=== PATIENT | male | born 1950 | race Caucasian/White ===

== ENCOUNTER 2022-02-08 07:34 | Inpatient (IN) ==
--- NOTE | 2022-01-12 15:41 | PAT Medication Instructions ---
Medication Instructions Date of Service January 12, 2022 Home Medications aspirin 81 mg tablet,delayed release 81 mg PO 3XWK doxazosin 1 mg tablet 1 mg PO HS ibuprofen 200 mg tablet (Advil) 200 mg PO BID PRN verapamil 240 mg tablet,extended release 240 mg PO HS ASK your surgeon for instructions ibuprofen 200 mg tablet (Advil) 200 mg PO BID PRN ASK your prescriber and surgeon aspirin 81 mg tablet,delayed release 81 mg PO 3XWK Take evening before surgery doxazosin 1 mg tablet 1 mg PO HS verapamil 240 mg tablet,extended release 240 mg PO HS Other Notes If you have any questions please call us at [phone] or [phone] or [phone] or [phone]
--- NOTE | 2022-01-16 11:34 | Anesthesiology Consultation ---
Date of Service January 16, 2022 Assessment & Plan (1) Encounter for pre-operative examination: COVID screening: Per assessment on 01/16: No known COVID-19 positive contacts or current COVID-19 related symptoms. Travel screen negative. Patient vaccinated. Surgeon arranging preop COVID testing. Awaiting results. Chart Review Chart Review: Acceptable Risk for Surgery and Patient seen in Pre Admission Testing History Surgery Operation Date: 02/08/22 10:40 Proposed Procedures p Right Knee Poly Exchange with Possible Revision of Total Knee Arthroplasty - Ajay Castillo DO Height/Weight Height: 5 ft 6 in Weight: 91.8 kg Allergies Allergy/AdvReac Type Severity Reaction Status Date / Time No Known Allergies Allergy Unknown Verified 01/12/22 14:41 Medications Home Medications Medication Instructions Recorded Confirmed Last Taken aspirin 81 mg tablet,delayed 81 mg PO 3XWK 01/12/22 01/12/22 Unknown release doxazosin 1 mg tablet 1 mg PO HS 01/12/22 01/12/22 Unknown ibuprofen 200 mg tablet (Advil) 200 mg PO BID PRN 01/12/22 01/12/22 Unknown verapamil 240 mg tablet,extended 240 mg PO HS 01/12/22 01/12/22 Unknown release Past Medical History Medical History Aortic stenosis Mild aortic stenosis (AZK 1.4-1.5cm2, MG 11-12.6mmhg) per 02/2021 echo Arthritis Enlarged prostate Hypertension Exercise / Class Metabolic Activity II 4-5 Yardwork/Stairs/Walk up hill (one FS (no CP, no SOB)) Past Family History Family History Other No known health problems Past Surgical History Surgical History History of adenoidectomy History of appendectomy History of arthroscopy LEFT KNEE History of carpal tunnel release R/L History of cataract surgery R/L History of colonoscopy History of elbow surgery LEFT X 2 History of repair of rotator cuff RIGHT X 3 History of repair of rotator cuff LEFT History of tonsillectomy History of total knee replacement RIGHT Hx of hand surgery RIGHT JT REPLACEMENT Past Anesthesia History No Hx of Anesthesia Complications and No Family Hx of Anesthesia Complications History of PONV No Hx of PONV and No Hx of Motion Sickness Social History Smoking Status: Former smoker Do You Dip or Chew Tobacco: No (QUIT 10-15 YRS AGO) Smoking End Date: Quit 1970s Hx Alcohol Use: Yes Alcohol type: beer alcohol intake frequency: 0-2 drinks per day (1-2 beers/day) Hx Substance Use: No Review of Systems Patient denies chest pain, shortness of breath, dyspnea on exertion, fever, chills, cough, wheezing, palpitations. Physical Exam Vital Signs VITALS BP 145/82 P 63 TEMP 97.6 SP02 96%RA RESP 16 PHYSICAL Full cervical extension range of motion. Full TMJ range of motion. TMD 3 finger breaths Mallampati Score 3 (small oral opening) Dentition: lower partial, upper front crowns Lungs: clear throughout to auscultation Cardiac: regular rate and rhythm, I/ systolic murmur Spine: normal Carotid arteries: negative bruit Extremities: no edema Lab Results Anesthesia Preop Results Results Anesthesia Widget: WBC 5.72 K/uL (4.8-10.8) 01/16/22 Hgb 14.0 g/dL (14.0-18.0) 01/16/22 Hct 40.9 % (42-52) L 01/16/22 Plt 198 K/uL (130-400) 01/16/22 Na 140 mmol/L (136-145) 01/16/22 K 4.0 mmol/L (3.5-5.1) 01/16/22 Cl 105 mmol/L (98-107) 01/16/22 CO2 28 mmol/L (21-32) 01/16/22 BUN 13 mg/dl (6-23) 01/16/22 Creat 0.69 mg/dl (0.6-1.4) 01/16/22 Glucose Level 82 mg/dl (70-99(Fasting)) 01/16/22 PT 10.7 Seconds (9.0-12.0) 01/16/22 PTT 30.2 Seconds (21.0-31.0) 01/16/22 INR 1.0 (0.9-1.1) 01/16/22 HA1c 5.7 % (4.5-5.6) H 01/16/22 Urine Color Yellow 01/16/22 Urine Appearance Clear (Clear) 01/16/22 Urine pH 6.5 (4.5-7.5) 01/16/22 Urine Specific [place] 1.009 (1.000-1.030) 01/16/22 Urine Protein Negative (Negative) 01/16/22 Urine Glucose (UA) Negative (Negative) 01/16/22 Urine Ketones Negative (Negative) 01/16/22 Urine Blood Negative (Negative) 01/16/22 Urine Nitrite Negative (Negative) 01/16/22 Urine Bilirubin Negative (Negative) 01/16/22 Urine Urobilinogen Negative (Negative) 01/16/22 Urine Leukocyte Esterase Negative (Negative) 01/16/22 Blood Type A Negative 01/16/22 Antibody Screen NEGATIVE 01/16/22 Testing Electrocardiogram Date: 01/16/22 Sinus bradycardia with first-degree AV block at 57 bpm. Nonspecific T wave abnormality. Unconfirmed report. Chest X-Ray Date: 01/16/22 FINDINGS: The cardiac silhouette is mildly enlarged. No pneumothorax, large pleural effusion or overt pulmonary edema. Nonspecific interstitial coarsening of the lung bases with mild blunting of the costophrenic angles. Degenerative changes of the shoulders and spine. Atherosclerosis of the aorta. IMPRESSION: Cardiomegaly with mild nonspecific interstitial coarsening of the lung bases suggestive of atelectasis versus scarring. Echocardiogram Date: 02/10/21 LVEF 50-54%. Borderline increased concentric LV wall thickness. Moderate LAE. Grade 1 diastolic dysfunction. Mild AV calcification. Mild aortic stenosis (ZAK 1.4-1.5cm2, MG 11-12.6mmhg). Mild AR. Mild MR. Proximal ascending thoracic aorta is mildly enlarged.
--- NOTE | 2022-01-23 08:04 | History & Physical Report ---
Date of Service January 23, 2022 date of surgery: 02/08/22 Procedure: Right Knee Poly Exchange with Possible Revision of Total Knee Arthroplasty Surgeon: Ajay Castillo Assessment & Plan (1) Painful total knee replacement, right: Plan: He is s/p Right [place]KA [place] [address] Castillo, has continued pain and giving out, he has had a negative workup for infection, will proceed with right knee Poly Exchange with Possible Revision of Total Knee Arthroplasty pending intra-opera tive findings. will start on ASA 81mg po bid x 1 month, plan on HHPT at time of discharge. The risks and benefits have been discussed including, but not limited to, risk of infection, nerve injury, stiffness, loss of motion, failure to improve, etc. Reasonable outcomes and options of treatment were discussed. An explanation of appropriate alternatives to the procedure that may be advantageous were discussed and their risks and benefits, as well as the risks and benefits of not proceeding with treatment. I offered to answer any additional inquiries concerning the treatment involved. All the patient's questions were answered. The patient is agreeable, understanding of the treatment plan and alternatives, and wishes to proceed with the treatment plan. History of Present Illness Chief Complaint: Right knee pain Primary Care Provider: Brenden Anders MD Christopher is a 71 year old male who complains of right knee pain, has history of Right TKA by Dr Castillo 09/30/03. He was doing well until recently, he now has complaints of giving out and instability. He had prior bone scan in April 2021 which was negative for loosening or infection, he also had a ESR level of 3 at that time. he denies any injuries or trauma to the knee, he has used OTC NSAIDs and Tyelnol for pain. Allergies Allergy/AdvReac Type Severity Reaction Status Date / Time No Known Allergies Allergy Unknown Verified 01/12/22 14:41 Home Medications Medication Instructions Recorded Confirmed Type aspirin 81 mg tablet,delayed 81 mg PO 3XWK 01/12/22 01/12/22 History release doxazosin 1 mg tablet 1 mg PO HS 01/12/22 01/12/22 History ibuprofen 200 mg tablet (Advil) 200 mg PO BID PRN 01/12/22 01/12/22 History verapamil 240 mg tablet,extended 240 mg PO HS 01/12/22 01/12/22 History release Past Med/Surg History Medical History Aortic stenosis Mild aortic stenosis (ZAK 1.4-1.5cm2, MG 11-12.6mmhg) per 02/2021 echo Arthritis Enlarged prostate Hypertension Surgical History (Updated 01/23/22 @ 08:13 by Jeanmarie Smith PA-C) History of adenoidectomy History of appendectomy History of arthroscopy LEFT KNEE History of carpal tunnel release R/L History of cataract surgery R/L History of colonoscopy History of elbow surgery LEFT X 2 History of repair of rotator cuff RIGHT X 3 History of repair of rotator cuff LEFT History of tonsillectomy History of total knee replacement RIGHT TKA: 09/30/03: using [employer] Scorpio knee, 9 Femur, 9 Tibia, 12 poly, 10 patella Hx of hand surgery RIGHT JT REPLACEMENT Family History Other No known health problems Social History Smoking Status: Former smoker Second Hand Exposure: No; Hx Alcohol Use: Yes Alcohol type: beer Hx Substance Use: No Preferred Language: Chinese Communication Ability: Effective 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: No Beliefs That Will Affect Care: None Current Living Situation: Spouse current occupational status: employed 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 Feels Safe at Home: Yes Assistive Devices: Denture - Lower, Glasses and Hearing Aid - Bilateral Review of Systems Review of Systems: All systems reviewed & are unremarkable except as noted in HPI & below Constitutional: no fever, no chills and no sweats Respiratory: no cough and no dyspnea Cardiovascular: no chest pain, no dyspnea and no orthopnea Gastrointestinal: no abdominal pain, no nausea and no vomiting Musculoskeletal: as per Subjective / HPI Physical Exam Physical Exam: HT: 5ft 6in WT: 91.8kg BP: 126/78 Constitutional: WD/WN, vitals as above no acute distress Respiratory: normal respiratory effort, lungs clear to auscultation no respiratory distress, no labored breathing and does not use accessory muscles Cardiovascular: RRR, no murmur, no edema Gastrointestinal (Abdomen): normal bowel sounds, soft, nontender, no hepatosplenomegaly Musculoskeletal: Knee: + knee abnormal to inspection (RIGHT KNEE), + effusion (+1 effusion), + surgical incision (well healed portals), + limited ROM of knee (ROM 0/0/115) and + joint line tenderness (medial joint line); no deformity, no skin erythema, no ecchymosis, no crepitation with knee ROM, no valgus laxity, no varus laxity and anterior drawer test negative Results & Data Results & Data ([facility]) Diagnostic Findings Radiographs reveal a cemented total knee replacement arthroplasty in acceptable position and alignment. No evidence of loosening or loss of fixation is noted. The patella is tracking well. ASSESSMENT: status post cemented posterior stabilized total knee replacement arthroplasty. BONE SCAN APR 2021 NO SIGNS OF LOOSENING OR INFECTIOUS PROCESS.
[~2022-02-08 07:34] MED LIST: ACETAMINOPHEN 500 MG TAB PO SCH; BUPIVACAINE 0.5 % 5 MG/1 ML PF 10ML VIAL ONE; CeleBREX 200 MG CAP PO SCH; EPINEPHrine INJ 1 MG/ML AMP ONE; FAMOTIDINE 20 MG TAB PO SCH; GABAPENTIN 300 MG CAP PO SCH; LR 500ML BOLUS, THEN 15ML/HR IV SCH; METOCLOPRAMIDE HCL 10 MG TABLET PO SCH; ROPIVACAINE 0.5% 5 MG/ML 30 ML VIAL ONE; ROPIVACAINE 0.5% HCL/PF 150 MG, BUPIVACAINE 0.75% MPF 20 ML, EPINEPHrine 30MG/30ML (OR ... INFIL SCH; ceFAZolin 2000MG 2,000 MG/15 ML SYR IV SCH; dexAMETHasone 4 MG TAB PO SCH; oxyCODONE HCL 10 MG TABCR (OxyCONTIN) PO SCH
--- NOTE | 2022-02-08 09:08 | History & Physical Bridge Note ---
Date of Service February 08, 2022 History & Physical Bridge Note I have examined the patient, reviewed the History & Physical and in the interval since the performance of the History & Physical I have noted the following changes of clinical significance: no changes noted
[2022-02-08] MEDS ORDERED: MIDAZOLAM HCL 1 MG/ML 2ML VIAL ONE (10:21)
[2022-02-08] MEDS ORDERED: ORTHO JOINT ANESTHETIC ONE (11:42)
[2022-02-08] MEDS ORDERED: fentaNYL citrate 100 MCG/2 ML VIAL ONE (11:45)
[2022-02-08] MEDS ORDERED: PROMETHAZINE HCL 12.5 MG in SODIUM CHLORIDE 0.9% 50 ML IV PRN (12:12)
[2022-02-08] MEDS ORDERED: ePHEDrine sulfate 50 MG/ML AMP IV PRN (12:12)
[2022-02-08] MEDS ORDERED: ATROPINE SULFATE 0.1 MG/ML 10ML SYR IV PRN (12:12)
[2022-02-08] MEDS ORDERED: HYDROmorphone INJ 1 MG/ML SYRINGE IV PRN (12:12)
[2022-02-08] MEDS ORDERED: fentaNYL citrate 100 MCG/2 ML VIAL IV PRN (12:12)
[2022-02-08] MEDS ORDERED: ONDANSETRON INJ 2 MG/ML 2 ML VIAL IV PRN ×2 (12:12→15:38)
[2022-02-08] MEDS ORDERED: FLUMAZENIL 0.1 MG/1 ML 10 ML VIAL IV PRN (12:12)
[2022-02-08] MEDS ORDERED: NALOXONE HCL 0.4 MG/1 ML VIAL/CARP IV PRN ×2 (12:12→15:38)
[2022-02-08] MEDS ORDERED: PROPOFOL IV EMULSION 10 MG/ML 20 ML VIAL IV ONE (12:29)
--- NOTE | 2022-02-08 13:02 | Operative Report ---
Post Operative Report Pre & Post Diagnosis Operation Date: 02/08/22 10:50 Pre-Op Diagnosis: Right total knee arthroplasty with worn polyinsert Post-Op Diagnosis: Right total knee arthroplasty with worn polyinsert I identified the patient and participated in the time-out.: Yes Procedure Operation Date: 02/08/22 10:50 Actual Procedur right total knee arthroplasty polychange to size 18 mm Scorpio insert (Right) - Ajay Castillo DO Surgeon Ajay Castillo DO Engraver Apprentice Decorative Neftaly KRAUS Estimated Blood Loss 5 Findings Consistent with Post-Op Diagnosis Patient presents with laxity in both flexion extension mid flexion with wear to his polyinsert no sign of or evidence of loosening of tibial component femoral component or patellar component was noted the patient had laxity in both flexion extension mid flexion the original polywas a size 12 was upsized to a size 18 gave excellent stability in all ranges of motion Specimens Polyinsert Drains None Anesthesia Type MAC Spinal Regional Complications none Disposition Accompanied Patient To Recovery: No Disposition: Recovery Room Indications Patient presents with ligamentous laxity after having had undergone a previous right total knee arthroplasty in 2003 no evidence of loosening of component was noted the patient underwent a polychange and upsized from a size 12 to a size 18 Description of Procedure After initiation of regional and general anesthesia the right lower extremity socially prepped draped usual fashion surgery type utilizing #15 blade incision made in the region of the previous incision and extensor mechanism a medial parapatellar incision made and the medial lateral gutters were removed from stenosis no thickened synovium there was no evidence of femoral or tibial loosening patellar components in excellent condition no loosening was noted there was ligamentous laxity both flexion mid flexion and extension with polywear noted after performing thorough irrigation debridement lavage removal of all polymaterial the polywas removed and was trialed with a wound was irrigated with copious amounts of sterile saline solution operative matter debris was removed subsequently the medial parapatellar incision was closed #1 Vicryl subcu was closed 2-0 Vicryl skin was closed with 3-0 Vicryl 2-0 Vicryl and skin clips sterile compressive dressing was placedDue to the complex nature of the procedure, the entire surgery was performed with the operational assistance of Sola KRAUS The boilermaker's assistant, under direct supervision, was involved in the actual performance of all aspects of the surgical procedure including hemostasis, tissue retraction and incision, instrument management, patient positioning, and wound closure. up to a size 18 gave excellent stability in both flexion extension mid flexion wound was irrigated with copious amounts of sterile saline solution subsequently the final new polycomponent was placed a size 18 mm thickness the I attest to the content of the Intraoperative Record and any orders documented therein. Any exceptions are noted below.
--- NOTE | 2022-02-08 14:20 | XRay Report ---
RIGHT KNEE 2 VIEWS History: Right total knee arthroplasty. Degenerative arthritis. Postop. FINDINGS: The patient is status post a right total knee arthroplasty. The hardware is intact. No frac ture or dislocation. Skin amy are in place. IMPRESSION: Right total knee arthroplasty. No evidence for hardware complication. ACT 112: Negative or not required by law. Electronically signed by: Jamie Willett M.D. 02/08/2022 2:18 PM
--- NOTE | 2022-02-08 14:35 | Anesthesiology Progress Note ---
Date of Service February 08, 2022 Anesthesia Post Procedure Vital Signs Vital Signs: Temp Pulse Resp BP Pulse Ox 02/08/22 14:20 36.1 C L 64 18 120/78 95 02/08/22 14:10 61 18 134/79 97 02/08/22 14:00 62 14 128/68 93 02/08/22 13:50 63 15 132/79 99 02/08/22 13:40 67 15 125/79 97 02/08/22 13:31 36.4 C L 77 18 130/77 94 02/08/22 08:08 36.9 C 79 18 138/81 96 Transfer of Care Handoff Completed per policy Notes Mental Status: alert / awake / arousable Patient Amnestic to Procedure: Yes Nausea / Vomiting: adequately controlled Pain: adequately controlled Airway Patency, RR, SpO2: stable & adequate BP & HR: stable & adequate Hydration State: stable & adequate Anesthetic Complications: no major complications apparent
[2022-02-08] MEDS ORDERED: MAGNESIUM HYDROXIDE SUSP 30 ML UDC PO PRN (15:38)
[2022-02-08] MEDS ORDERED: bisacodyL 10 MG SUPP PR PRN (15:38)
[2022-02-08] MEDS ORDERED: oxyCODONE HCL IR 5 MG TAB (IMMEDIATE RELEASE) PO PRN (15:38)
[2022-02-08] MEDS ORDERED: diphenhydrAMINE 50 MG/ML VIAL IV PRN (15:38)
[2022-02-08] MEDS ORDERED: HYDROmorphone INJ 0.5 MG/0.5 ML SYR IV PRN (15:38)
[2022-02-08] MEDS: SODIUM CHLORIDE 0.9% 1000ML 1,000 ML IV SCH (16:00)
--- NOTE | 2022-02-08 16:01 | Hospitalist Consultation ---
Date of Consultation February 08, 2022 Assessment & Plan (1) Painful total knee replacement, right: - S/p total R knee poly exchange by Dr. Castillo on 02/08/22 - Pain management, bowel regimen and DVT ppx with ASA 81 mg BID per the primary team - PT/OT consults, pt is planning on outpatient therapy - Follow am CBC to monitor for acute blood loss (2) Hypertension: (3) Aortic stenosis: - Hx of such, monitor - May continue aspirin 81 mg 3x per week, verapamil 240 mg po HS (4) Enlarged prostate: - Noted, monitor for urinary retention s/p surgical procedure (5) Arthritis: - May continue ibuprofen per the primary team after discharge, hold while taking asa 81 mg BID - Continue pain medication as per primary team -Occurs primarily in the left ankle, patient denies any previous trauma or injury to this location DVT PPx: - teds, scds, ASA 81 mg twice daily CODE: Full code Dispo: From home, likely to remain in the hospital x 1-2 days Thank you for involving us in the care of Mr. Lutz. If you have any questions or concerns please do not hesitate to call. At this time medicine will follow along. Supervising Physician Co-Signing Physician Notes Patient seen and examined independently at bedside. Chart reviewed. Case discussed with Bella WELSH and agree with the documentation above. In summary, this is a 71 year old male with right knee TKA with worn polyinsert who underwent Actual Procedur right total knee arthroplasty polychange to size 18 mm Scorpio insert(Right) by Dr Castillo today. Doing well postop. Resting comfortably in bed, pain controlled. Tolerated diet without issues. Right knee covered with dressing. Chest clear, heart sounds normal, AAOx3. Diet, ac tivities, pain management and DVT prophylaxis per ortho. Rest as per note above. History of Present Illness Reason for Consultation: Medical management Requesting Physician: Dr. Castillo Attending Physician: Ajay Castillo DO History of Present Illness This is a 71-year-old male with PMHx of aortic stenosis, arthritis, enlarged prostate, hypertension who presents to the hospital for elective right total knee arthroplasty with worn polyinsert, arthroplasty polyexchange on 02/08/[address] Castillo. He is doing very well status post surgical procedure. His , Annabella, is sitting with him at bedside. Patient denies any acute complaints and is tolerating his Jell-O without difficulty. He denies any severe pain, numbness or tingling into bilateral lower extremities. He notes that he occasionally has left ankle will bother him and states that he is planning on having an orthopedic doctor look at this after his knee heals up. Left ankle occasionally gets swollen but otherwise he denies any acute edema in his lower extremities. He notes having a soft murmur that was found about 2 years ago by his PCP. Allergies Allergy/AdvReac Type Severity Reaction Status Date / Time No Known Allergies Allergy Unknown Verified 02/08/22 08:06 Home Medications Medication Instructions Recorded Confirmed Type aspirin 81 mg tablet,delayed 81 mg PO 3XWK 01/12/22 02/08/22 History release doxazosin 1 mg tablet 1 mg PO HS 01/12/22 02/08/22 History ibuprofen 200 mg tablet (Advil) 200 mg PO BID PRN 01/12/22 02/08/22 History verapamil 240 mg tablet,extended 240 mg PO HS 01/12/22 02/08/22 History release Patient History Medical History (Updated 02/08/22 @ 16:02 by Bella Leon PA-C) Aortic stenosis Mild aortic stenosis (ZAK 1.4-1.5cm2, MG 11-12.6mmhg) per 02/2021 echo Arthritis Enlarged prostate Hypertension Surgical History History of adenoidectomy History of appendectomy History of arthroscopy LEFT KNEE History of carpal tunnel release R/L History of cataract surgery R/L History of colonoscopy History of elbow surgery LEFT X 2 History of repair of rotator cuff RIGHT X 3 History of repair of rotator cuff LEFT History of tonsillectomy History of total knee replacement RIGHT TKA: 09/30/03: using [employer] Scorpio knee, 9 Femur, 9 Tibia, 12 poly, 10 patella Hx of hand surgery RIGHT JT REPLACEMENT Family History Other No known health problems Social History Smoking Status: Former smoker Smoking End Date: Quit ; Second Hand Exposure: No; Do You Dip or Chew Tobacco: No (QUIT 10-15 YRS AGO); Hx Alcohol Use: Yes Alcohol type: beer Hx Substance Use: No Preferred Language: Upper Sorbian Communication Ability: Effective Driver Education Instructor Required: No Beliefs That Will Affect Care: None Current Living Situation: Spouse current occupational status: employed 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 Other Information That Helps Us Care for You: No Feels Safe at Home: Yes Safety Concerns: Feels Safe At This Time Assistive Devices: Hearing Aid - Bilateral Review of Systems Review of Systems: Constitutional: No fever, sweats or chills Eyes: No diplopia, no worsening or blurred vision ENT: normal hearing, no trouble swallowing Respiratory: No cough, sputum, dyspnea at rest or on exertion Cardiovascular: No chest pain, tightness or palpitations Abdomen: No pain, nausea, vomiting, diarrhea or constipation Musculoskeletal: No joint pain, calf pain, swelling, as per HPI Neurologic: No weakness, numbness/tingling, or balance problems Psychiatric: No anxiety or depression Skin: No rash or itch Physical Exam Physical Exam: General: awake, alert, no apparent distress Head: Normocephalic, atraumatic ENT: PERRL, EOMI, no pharyngeal exudate, mucous membranes moist Chest: Clear to auscultation, on room air, no adventitious breath sounds Cardiac: Regular rate and rhythm, no murmur, no JVD, normal peripheral pulses, good capillary refill Abdominal: NABS x 4 quadrants, soft, nondistended, nontender to palpation, no rebound or guarding Extremities: Right knee with bandage C/D/I, shen wrap intact, ice pack in place, otherwise normal inspection, no peripheral edema or erythema, calfs nontender to palpation Psych: Normal mood and affect Neuro: AAO x 3, strength intact bilaterally and rated 5/5, no motor deficits, speech is clear, no peripheral sensory deficits Results & Data Results & Data ([facility]) Vital Signs (Past 12 Hours) Vital Signs Temp Pulse Resp BP Pulse Ox 02/08/22 15:36 36.4 C L 61 16 160/83 H 98 02/08/22 15:14 36.4 C L 64 18 135/84 2 L 02/08/22 14:35 58 L 13 132/85 96 02/08/22 14:20 36.1 C L 64 18 120/78 95 02/08/22 14:10 61 18 134/79 97 02/08/22 14:00 62 14 128/68 93 02/08/22 13:50 63 15 132/79 99 02/08/22 13:40 67 15 125/79 97 02/08/22 13:31 36.4 C L 77 18 130/77 94 02/08/22 08:08 36.9 C 79 18 138/81 96 Laboratory Results 02/08/22 02/08/22 08:41 07:48 SARS-CoV-2, RNA, NAAT NEGATIVE Blood Type A Negative Antibody Screen NEGATIVE Diagnostic Findings Knee X-Ray 02/08/22 14:01 RIGHT KNEE 2 VIEWS History: Right total knee arthroplasty. Degenerative arthritis. Postop. FINDINGS: The patient is status post a right total knee arthroplasty. The hardware is intact. No fracture or dislocation. Skin amy are in place. IMPRESSION: Right total knee arthroplasty. No evidence for hardware complication. ACT 112: Negative or not required by law. Electronically signed by: Jamie Willett M.D. 02/08/2022 2:18 PM
[2022-02-08] MEDS: ACETAMINOPHEN 500 MG TAB PO SCH ×2 (16:09→22:31)
[2022-02-08] MEDS: ceFAZolin 2000MG 2,000 MG/15 ML SYR IV SCH (20:22)
[2022-02-08] MEDS: DOCUSATE SODIUM 100 MG CAP PO SCH (20:23)
[2022-02-08] MEDS: ASPIRIN 81 MG ECTAB PO SCH (20:23)
[2022-02-08] MEDS: KETOROLAC TROMETHAMINE 15 MG/ML VIAL IV SCH (20:23)
[2022-02-08] MEDS ORDERED: ASPIRIN 81 MG ECTAB PO SCH (21:00)
[2022-02-08] MEDS ORDERED: SENNA 8.6 MG TAB PO SCH (21:00)
[2022-02-08] MEDS ORDERED: VERAPAMIL HCL 240 MG TABCR PO SCH (21:00)
[2022-02-08] MEDS ORDERED: DOXAZOSIN MESYLATE 1 MG TAB PO SCH (21:00)
[2022-02-09] MEDS: SODIUM CHLORIDE 0.9% 1000ML 1,000 ML IV SCH (02:14)
[2022-02-09] MEDS: ceFAZolin 2000MG 2,000 MG/15 ML SYR IV SCH (03:17)
[2022-02-09] MEDS: KETOROLAC TROMETHAMINE 15 MG/ML VIAL IV SCH ×2 (03:17→09:00)
[2022-02-09] MEDS: ACETAMINOPHEN 500 MG TAB PO SCH ×2 (05:14→13:41)
[2022-02-09 07:32] LABS: Hematocrit (blood only) 34.3 % (42-52); Hemoglobin 11.6 g/dL (14.0-18.0); Mean Corpuscular Hemoglobin 30.4 pg (25-34); Mean Corpuscular Hgb Conc 33.8 g/dL (32-36); Mean Platelet Volume 11.6 fL (7.4-10.4); Platelet Count 184 K/uL (130-400); RDW Coefficient of Variation 14.9 % (11.5-14.5); RDW Standard Deviation 48.7 fL (36.4-46.3); Red Blood Count 3.81 M/uL (4.7-6.1); White Blood Count 11.69 K/uL (4.8-10.8)
[2022-02-09 07:44] LABS: BUN Creatinine Ratio 30.8 (10-20); Calcium 8.2 mg/dl (8.5-10.1); Est GFR (African American) 104.5 ml/min; Est GFR (Non-African American) 90.2 ml/min; Potassium 4.1 mmol/L (3.5-5.1)
[2022-02-09] MEDS: DOCUSATE SODIUM 100 MG CAP PO SCH (08:58)
[2022-02-09] MEDS: ASPIRIN 81 MG ECTAB PO SCH (08:58)
[2022-02-09] MEDS ORDERED: MULTIVITAMIN TAB PO SCH (09:00)
--- NOTE | 2022-02-09 09:18 | Orthopedic Progress Note ---
Date of Service February 09, 2022 Assessment & Plan (1) Painful total knee replacement, right: Plan: Postop day 1 status post right TKA polyethylene bearing change. PT/OT protocols. Weightbearing as tolerated. DVT prophylaxis-aspirin p.o. twice daily, WILEY Dominguez. Pain management as written. DC planning-patient is planning for outpatient PT upon discharge. We will recheck him later this morning to see how his physical therapy is progressing and plan for possible discharge to home today. Admission and Anticipated Discharge Date Admission Date: February 08, 2022 Subjective Postop day 1 Patient sitting up in bed awake and alert. No complaints this morning. Pain is controlled. Denies shortness of breath, chest pain, lightheadedness. He is hoping to go home today. Physical Exam Physical Exam: Dressings are clean, dry, and intact. Calves are soft and nontender. Neurovascular is intact. Toes are mobile. Patient has good dorsiflexion and plantarflexion of his right ankle/foot. Results & Data ([facility]) Vital Signs (Past 12 Hours) Vital Signs Temp Pulse Pulse Resp BP BP Pulse Ox 02/09/22 08:07 36.5 C 57 L 16 129/79 92 02/09/22 03:28 36.6 C 71 18 113/70 94 02/08/22 23:06 36.6 C 75 18 119/72 95 Laboratory Results Laboratory Results WBC 11.69 K/uL (4.8-10.8) H 02/09/22 07:06 RBC 3.81 M/uL (4.7-6.1) L 02/09/22 07:06 Hgb 11.6 g/dL (14.0-18.0) L 02/09/22 07:06 Hct 34.3 % (42-52) L 02/09/22 07:06 MCV 90.0 fL (80-100) 02/09/22 07:06 MCH 30.4 pg (25-34) 02/09/22 07:06 MCHC 33.8 g/dL (32-36) 02/09/22 07:06 RDW Std Deviation 48.7 fL (36.4-46.3) H 02/09/22 07:06 RDW Coeff of Farhan 14.9 % (11.5-14.5) H 02/09/22 07:06 Plt Count 184 K/uL (130-400) 02/09/22 07:06 MPV 11.6 fL (7.4-10.4) H 02/09/22 07:06 Sodium 137 mmol/L (136-145) 02/09/22 07:06 Potassium 4.1 mmol/L (3.5-5.1) 02/09/22 07:06 Chloride 104 mmol/L (98-107) 02/09/22 07:06 Carbon Dioxide 27 mmol/L (21-32) 02/09/22 07:06 Anion Gap 6 (3-11) 02/09/22 07:06 BUN 24 mg/dl (6-23) H 02/09/22 07:06 Creatinine 0.78 mg/dl (0.6-1.4) 02/09/22 07:06 Est Cr Clr Drug Dosing 90.0 ml/min 02/09/22 07:06 Est GFR ( Amer) 104.5 ml/min 02/09/22 07:06 Est GFR (Non-Af Amer) 90.2 ml/min 02/09/22 07:06 BUN/Creatinine Ratio 30.8 (10-20) H 02/09/22 07:06 Glucose 130 mg/dl (70-99(Fasting)) H 02/09/22 07:06 Calcium 8.2 mg/dl (8.5-10.1) L 02/09/22 07:06 SARS-CoV-2, RNA, NAAT NEGATIVE (NEGATIVE) 02/08/22 07:48 Blood Type A Negative 02/08/22 08:41 Antibody Screen NEGATIVE 02/08/22 08:41 Impressions Knee X-Ray 02/08/22 14:01 RIGHT KNEE 2 VIEWS History: Right total knee arthroplasty. Degenerative arthritis. Postop. FINDINGS: The patient is status post a right total knee arthroplasty. The hardware is intact. No fracture or dislocation. Skin amy are in place. IMPRESSION: Right total knee arthroplasty. No evidence for hardware complication. ACT 112: Negative or not required by law. Electronically signed by: Jamie Willett M.D. 02/08/2022 2:18 PM
--- NOTE | 2022-02-09 16:44 | Hospitalist Progress Note ---
Date of Service February 09, 2022 Assessment & Plan (1) Painful total knee replacement, right: Plan: (1) Painful total knee replacement, right: #. Acute blood loss anemia s/p Knee Sx - S/p total R knee poly exchange by Dr. Castillo on 02/08/22 - Pain management, bowel regimen and DVT ppx with ASA 81 mg BID per the primary team - PT/OT consults, pt is planning on outpatient therapy - Follow am CBC to monitor for acute blood loss --> Hb of 11.6, drop from 14.0 in January. - Pt w/o dizziness/palpitations/chest pain/weakness. F/u CBC in a week time to ensure stability. (2) Hypertension: (3) Aortic stenosis: - Hx of such, monitor - May continue aspirin 81 mg 3x per week, verapamil 240 mg po HS (4) Enlarged prostate: - Noted, monitor for urinary retention s/p surgical procedure (5) Arthritis: - May continue ibuprofen per the primary team after discharge, hold while taking asa 81 mg BID - Continue pain medication as per primary team -Occurs primarily in the left ankle, patient denies any previous trauma or injury to this location DVT PPx: - teds, scds, ASA 81 mg twice daily CODE: Full code Dispo: Per primary team. Admission and Anticipated Discharge Date Admission Date: February 08, 2022 Subjective Patient seen and examined as a follow-up of right total knee arthroplasty polychange to size 18 mm Scorpio insert Patient was sitting up in chair, on room air, NAD, no new acute events overnight. Patient reports eating okay and moving bowels. Patient reports pain under control. Patient denies any headache/dizziness/chest pain/palpitations/belly pain/other review of symptoms. Physical Exam Physical Exam: GENERAL: Alert and oriented x3. NAD, on RA. Obese HEENT: No pallor, no icterus. Pupils equal, round and reactive to light. Oral mucosa moist. NECK: No JVD, no neck masses. HEART: S1 and S2 heard. Regular rate and rhythm. No murmur, no gallop. RESPIRATORY SYSTEM: Normal AP diameter. No accessory muscle use. No wheezing, no crackles. ABDOMEN: Soft, bowel sounds present, nontender, no distention. CENTRAL NERVOUS SYSTEM: No facial droop. Speech is clear. Obeys simple commands. Moves extremities. EXTREMITIES: No edema, no erythema seen. Rt knee w/ clean dressings. Results & Data Results & Data ([facility]) Vital Signs (Past 12 Hours) Vital Signs Temp Pulse Resp BP BP Pulse Ox 02/09/22 11:51 36.6 C 75 16 112/71 97 02/09/22 08:07 36.5 C 57 L 16 129/79 92
--- NOTE | 2022-02-10 09:30 | Discharge Summary ---
Date of Service February 10, 2022 Admission HPI Per Admitting Provider Christopher is a 71 year old male who complains of right knee pain, has history of Right TKA by Dr Castillo 09/30/03. He was doing well until recently, he now has complaints of giving out and instability. He had prior bone scan in April 2021 which was negative for loosening or infection, he also had a ESR level of 3 at that time. he denies any injuries or trauma to the knee, he has used OTC NSAIDs and Tyelnol for pain. Admission Exam Per Admitting Provider Physical Exam: HT: 5ft 6in WT: 91.8kg BP: 126/78 Constitutional: WD/WN, vitals as above no acute distress Respiratory: normal respiratory effort, lungs clear to auscultation no respiratory distress, no labored breathing and does not use accessory muscles Cardiovascular: RRR, no murmur, no edema Gastrointestinal (Abdomen): normal bowel sounds, soft, nontender, no hepatosplenomegaly Musculoskeletal: Knee: + knee abnormal to inspection (RIGHT KNEE), + effusion (+1 effusion), + surgical incision (well healed portals), + limited ROM of knee (ROM 0/0/115) and + joint line tenderness (medial joint line); no deformity, no skin erythema, no ecchymosis, no crepitation with knee ROM, no valgus laxity, no varus laxity and anterior drawer test negative Principal Diagnosis Right Knee Pain / Instability Discharge Data Allergies Allergy/AdvReac Type Severity Reaction Status Date / Time No Known Allergies Allergy Unknown Verified 02/08/22 08:06 Consultations 02/02/22 15:43 Consult Hospitalist Routine Procedures Performed Operation Date: 02/08/22 10:50 Actual Procedures p Right Knee Poly Exchange(Right) - Ajay Castillo DO Ordered Studies 02/08/22 05:00 US - OR guided needle placemen Routine Hospital Course (1) Instability of right knee joint: Patient:CHRISTOPHER CARSON Admit Date:02/08/22 MR#:[id number] Att Phy:Ajay Castillo,DileepO. Acct ID:[id number] Aruna Phy:Brenden Anders MD Date:1950 Fam Phy: Age:71 Location:3N Sex:M Room/Bed:N383-2 cc: ~ *NOTICE TO RECEIVING [employer]/AGENCY This information is strictly Confidential and protected under [place] law. [place] law prohibits you from making any further disclosure of this information unless further disclosure is expressly permitted by the written consent of the person to whom it pertains or is authorized by law. A general authorization for the release of medical or other information is not sufficient for this purpose. Hospital accepts no responsibility if the information is made available to any other person, INCLUDING THE PATIENT. ADDENDUM 02/09/22 1234Addendum February 09, 2022 12:33 Pt progressing with PT. Plan for dc to home today. Addendum Signed By: <Electronically signed by Neftaly Bailey PA-C> 02/09/221233 Addendum Cosigned By: Created: 02/09/2211/01/1232 Date of Service February 09, 2022 Assessment & Plan (1) Painful total knee replacement, right: Plan: Postop day 1 status post right TKA polyethylene bearing change. PT/OT protocols. Weightbearing as tolerated. DVT prophylaxis-aspirin p.o. twice daily, SCDs, WILEY landa. Pain management as written. DC planning-patient is planning for outpatient PT upon discharge. We will recheck him later this morning to see how his physical therapy is progressing and plan for possible discharge to home today. Admission and Anticipated Discharge Date Admission Date: February 08, 2022 Subjective Postop day 1 Patient sitting up in bed awake and alert. No complaints this morning. Pain is controlled. Denies shortness of breath, chest pain, lightheadedness. He is hoping to go home today. Physical Exam Physical Exam: Dressings are clean, dry, and intact. Calves are soft and nontender. Neurovascular is intact. Toes are mobile. Patient has good dorsiflexion and plantarflexion of his right ankle/foot. Results & Data ([facility]) Vital Signs (Past 12 Hours) Vital Signs Temp Pulse Pulse Resp BP BP Pulse Ox 02/09/22 08:07 36.5 C 57 L 16 129/79 92 02/09/22 03:28 36.6 C 71 18 113/70 94 02/08/22 23:06 36.6 C 75 18 119/72 95 Laboratory Results Laboratory Results WBC 11.69 K/uL (4.8-10.8) H 02/09/22 07:06 RBC 3.81 M/uL (4.7-6.1) L 02/09/22 07:06 Hgb 11.6 g/dL (14.0-18.0) L 02/09/22 07:06 Hct 34.3 % (42-52) L 02/09/22 07:06 MCV 90.0 fL (80-100) 02/09/22 07:06 MCH 30.4 pg (25-34) 02/09/22 07:06 MCHC 33.8 g/dL (32-36) 02/09/22 07:06 RDW Std Deviation 48.7 fL (36.4-46.3) H 02/09/22 07:06 RDW Coeff of Farhan 14.9 % (11.5-14.5) H 02/09/22 07:06 Plt Count 184 K/uL (130-400) 02/09/22 07:06 MPV 11.6 fL (7.4-10.4) H 02/09/22 07:06 Sodium 137 mmol/L (136-145) 02/09/22 07:06 Potassium 4.1 mmol/L (3.5-5.1) 02/09/22 07:06 Chloride 104 mmol/L (98-107) 02/09/22 07:06 Carbon Dioxide 27 mmol/L (21-32) 02/09/22 07:06 Anion Gap 6 (3-11) 02/09/22 07:06 BUN 24 mg/dl (6-23) H 02/09/22 07:06 Creatinine 0.78 mg/dl (0.6-1.4) 02/09/22 07:06 Est Cr Clr Drug Dosing 90.0 ml/min 02/09/22 07:06 Est GFR ( Amer) 104.5 ml/min 02/09/22 07:06 Est GFR (Non-Af Amer) 90.2 ml/min 02/09/22 07:06 BUN/Creatinine Ratio 30.8 (10-20) H 02/09/22 07:06 Glucose 130 mg/dl (70-99(Fasting)) H 02/09/22 07:06 Calcium 8.2 mg/dl (8.5-10.1) L 02/09/22 07:06 SARS-CoV-2, RNA, NAAT NEGATIVE (NEGATIVE) 02/08/22 07:48 Blood Type A Negative 02/08/22 08:41 Antibody Screen NEGATIVE 02/08/22 08:41 Impressions Knee X-Ray 02/08/22 14:01 RIGHT KNEE 2 VIEWS History: Right total knee arthroplasty. Degenerative arthritis. Postop. FINDINGS: The patient is status post a right total knee arthroplasty. The hardware is intact. No fracture or dislocation. Skin amy are in place. IMPRESSION: Right total knee arthroplasty. No evidence for hardware complication. ACT 112: Negative or not required by law. Electronically signed by: Jamie Willett M.D. 02/08/2022 2:18 PM Total Time Total Time Spent Total Time Spent (In Minutes): 5 Discharge Plan Discharge Items Patient Disposition: Home - Self-Care Reason For Visit: Right Knee Complication Internal Right Knee Prosth Discharge Diagnosis: Right TKA pain with Instability Activity: Per Instructions section Weightbearing: Right weightbearing Weightbearing Comment: as tolerated with walker Non-emergency contact: Surgeon Call non-emergency contact if: your pain is not controlled, your temperature is above 101.5, your wound has increased redness and your wound has increased drainage Follow-up/Referrals: Ajay Castillo DO [Surgeon] - (Follow-up in 14 days from the day of surgery for your first postoperative visit.) Brenden Anders MD [Primary Care Provider] - Diet: Regular Addtl Attending Provider Instructions: ACTIVITY RECOMMENDATIONS: SELF CARE INSTRUCTIONS AFTER TOTAL KNEE REPLACEMENT A. You may need to continue a physical therapy program after discharge from the hospital. There are several options available to you. Your doctor will assist you in selecting the best one for you. 1. An out-patient facility 2 to 3 times a week for therapy or home therapy. 2. Continue working on all exercises taught to you in the hospital. Your goals should be to increase bending of your knee to 90 degrees and beyond and to fully straighten your knee. B. You may progress at your own pace from walking with a walker or crutches to a cane; then to no assistive devices. C. Make walking a part of your daily routine. Be up as much as comfortable with rest periods throughout the day. Rest with leg elevation is very important. Use the ice wrap frequently for the first 3-4 weeks. D. There are no restrictions on activities. You may ride in a car, shop, participate in certified pediatric nurse practitioner and all social activities. E. Wear the long elastic stockings (WILEY hose) 20 hours a day for 2 weeks after surgery. They can be removed several times a day for laundering and for a bath. F. You may shower, no tub baths until cleared by your doctor. SPECIAL CARE INSTRUCTIONS: VERY IMPORTANT TO READ AND REVIEW A. There are a few signs you need to watch for after you are home. Call [facility] if you notice any of the followin. Increased severe knee pain. Some pain is expected especially when you exercise. 2. Increased swelling in your leg or knee; pain or swelling of the calf muscle in either lower leg. 3. Any fluid drainage from the incision. 4. Shortness of breath or chest pain. B. Please call [facility] at if you have any concerns or questions about your operation or recovery. The doctor or his nurse will return your call promptly. C. You must take antibiotics before dental work, bladder, bowel or other surgery. Your doctor will provide you with a permanent care to carry describing this precaution. IMPORTANT: * REMEMBER TO TAKE ASPIRIN, 81 MG, TWICE DAILY FOR 4 WEEKS UNLESS OTHERWISE DIRECTED. THIS IS YOUR BLOOD THINNER.. * CALL IF INCREASED PAIN, REDNESS, DRAINAGE OR FEVER GREATER THAT 101. * WEAR WILEY HOSE 20 HOURS PER DAY FOR 2 WEEKS. * DECLAN Dressing - This is a large suction dressing covering your incision. This will help pull any excess drainage from the wound and allow your incision to heal properly. You may shower with this if you can keep the unit outside of the shower. If any bleeding or leakage is noted please call your doctor's office. This will remain on your incision for 7 days and then should be removed. This can be done yourself or by the home nursing staff if applicable. The entire unit is disposable once removed. Once removed, keep incision clean and dry. Then, keep wound covered with gauze until seen back in the office. If redness or drainage is noted, please call your surgeon. . FOLLOW UP VISIT: If appointment is not already scheduled: Please call [facility] to make a follow-up appointment for 2 weeks after your surgery at . Stand-Alone Forms: My [facility] [place], Opioid Pain Management, Smoking Cessation Medications and DC Order Prescriptions: New aspirin 81 mg Tablet,Delayed Release (Dr/Ec) 81 mg PO BID 30 Days Qty: 60 RF: 0 acetaminophen [Tylenol Extra Strength] 500 mg Tablet 1,000 mg PO Q8 14 Days Qty: 84 RF: 0 polyethylene glycol 3350 [Miralax] 17 gram powder in packet 17 g PO DAILY PRN (Reason: constipation) Qty: 5 RF: 0 cefadroxil 500 mg capsule 500 mg PO BID Qty: 14 RF: 0 oxycodone 5 mg Tablet 5 mg PO Q4H MDD 6 PRN (Reason: pain) Qty: 30 RF: 0 Continued doxazosin 1 mg Tablet 1 mg PO HS RF: 0 verapamil 240 mg Tablet Extended Release 240 mg PO HS RF: 0 Discontinued aspirin [Aspir-81] 81 mg Tablet,Delayed Release (Dr/Ec) 81 mg PO 3XWK RF: 0 ibuprofen [Advil] 200 mg Tablet 200 mg PO BID PRN (Reason: Pain) RF: 0 Discharge Orders: Discharge Order (Routine); Ordered 02/09/22 Ordered By: Neftaly Squires/Other Patient Handouts: DVT Post Op Prevention Admission Data Admit Date/Time: 02/08/22 14:01 Attending Provider: Ajay Castillo Admit Provider: Ajay Castillo Primary Care Provider: Brenden Anders Other Providers: Vikki Petersen Other Interventions: Discharge Summary Assessment (RN) Last Done: 02/09/22 12:41
== END 2022-02-09 15:11 | disposition home or self-care (01) | DRG 488 ==
LOC: ASU 07:34 → 3N 07:34 → OBSVTOIN 14:01